=== PATIENT | male | born 1955 | race Caucasian/White ===

== ENCOUNTER 2017-01-05 06:09 | Day surgery (SDC) | payer OTHER ==
[~2017-01-05] VITALS: Ht 188 cm; Wt 103.4 kg
--- NOTE | ~2017-01-05 | EGD ---
EGD REPORT [facility] [address] [address] NAME: TURNER DEL ROSARIO : [birth year] STATUS : REG [facility]#: [id number] AGE: 61 ADM/REG DATE : 01/05/17 MR#: [id number] REPORT SERV DATE: 01/05/17 DICTATED BY: ANA LOCKWOOD DATE: 01/05/17 REPORT STATUS : Draft [facility]ANS[facility]IB[facility]: [facility] DATE: 01/05/17 Endoscopy Center Patient Name: Turner Del Rosario Date of : 1955 Attending MD: ANA LOCKWOOD MD Procedure Date No Time: 01/05/2017 Procedure: Upper GI endoscopy Indications: Heartburn; Pantoprazole 40mg daily. Patient Profile: Informed consent was obtained from the patient by me prior to the procedure. Risks, benefits, and alternatives were reviewed including the risk of bleeding, perforation, infection, reaction to medicine, missed lesion, and cardiopulmonary complications. Referring MD: Mukund RUIZ Medicines: Monitored Anesthesia Care Complications: No immediate complications. Procedure: After obtaining informed consent, the endoscope was passed under direct vision. Throughout the procedure, the patient's blood pressure, pulse, and oxygen saturations were monitored continuously. The GIF [id number] was introduced through the mouth, and advanced to the second part of duodenum. The endoscope was withdrawn with careful examination all mucosal surfaces including retroflexion stomach. The upper GI endoscopy was accomplished without difficulty. The patient tolerated the procedure well. Findings: The first part of the duodenum and 2nd part of the duodenum were normal. Biopsies were taken with a cold forceps for histology. Two 3 mm sessile polyps with were found in the duodenal bulb. The polyps were removed with a cold biopsy forceps. Resection and retrieval were complete. Patchy mildly erythematous mucosa was found in the gastric body and in the gastric antrum. Biopsies were taken with a cold forceps for histology. The cardia and gastric fundus (on retroflexion) were normal. The Z-line was irregular, one tongue 0.5cm, no esophagitis or nodules. Biopsies were taken with a cold forceps for histology. The examined esophagus was normal. Biopsies were taken with a cold forceps for histology from mid and upper. Impression: - Normal first part of the duodenum and 2nd part of the duodenum. Biopsied. - Two duodenal polyps. Resected and retrieved. EGD REPORT [address] [address] NAME: TURNER DEL ROSARIO : [birth year] STATUS : REG [facility]#: [id number] AGE: 61 ADM/REG DATE : 01/05/17 MR#: [id number] REPORT SERV DATE: 01/05/17 DICTATED BY: ANA LOCKWOOD DATE: 01/05/17 REPORT STATUS : Draft TRANSCRIBED BY: [email or web address] DATE: 01/05/17 - Erythematous mucosa in the gastric body and antrum. Biopsied. - Normal cardia and gastric fundus. - Z-line irregular,. Biopsied. - Normal esophagus. Biopsied. Recommendation: - Patient has a contact number available for emergencies. The signs and symptoms of potential delayed complications were discussed with the patient. Return to normal activities tomorrow. Written discharge instructions were provided to the patient. - Regular diet. - Continue present medications. - Await pathology results. - Add Zantac 150mg qhs. - Schd office visit 2-3 months. Procedure Code(s): --- Professional --- 98900, Esophagogastroduodenoscopy, flexible, transoral; with biopsy, single or multiple Diagnosis Code(s): --- Professional --- K31.7, Polyp of stomach and duodenum K31.9, Disease of stomach and duodenum, unspecified K22.8, Other specified diseases of esophagus R12, Heartburn CPT copyright 2013 [employer]. All rights reserved. The codes documented in this report are preliminary and upon remote medical coder review may be revised to meet current compliance requirements. ANA LOCKWOOD MD 01/05/2017 7:53 AM This report has been signed electronically. Number of Addenda: 0 Note Initiated On: 01/05/2017 7:30 AM Scope Withdrawal Time 0 hours 0 minutes 0 seconds [address] [id number]
--- NOTE | ~2017-01-05 | EGD ---
EGD REPORT [facility] [address] [address] NAME: TURNER DEL ROSARIO : [birth year] [place]US : [place] [facility] [place]#: [id number] AGE: 61 ADM/REG DATE : 01/05/17 MR#: [id number] REPORT SERV DATE: 01/05/17 DICTATED BY: ANA LOCKWOOD DATE: 01/05/17 REPORT STATUS : Draft [facility]: [facility] DATE: 01/05/17 Endoscopy Center Patient Name: Turner Del Rosario Date of : 1955 Attending MD: ANA LOCKWOOD MD Procedure Date No Time: 01/05/2017 Procedure: Colonoscopy Indications: High risk colon cancer surveillance: Personal history of non-advanced adenoma; last exam 2013. Patient Profile: Informed consent was obtained from the patient by me prior to the procedure. Risks, benefits, and alternatives were reviewed including the risk of bleeding, perforation, infection, reaction to medicine, missed lesion, and cardiopulmonary complications. Referring MD: Mukund RUIZ Medicines: Monitored Anesthesia Care Complications: No immediate complications. Procedure: After I obtained informed consent, the scope was passed under direct vision. Throughout the procedure, the patient's blood pressure, pulse, and oxygen saturations were monitored continuously. The CF [id number] was introduced through the anus and advanced to the cecum, identified by appendiceal orifice and ileocecal valve. The colonoscope was slowly withdrawn with careful examination all mucosal surfaces including specific attention around flexures and tip deflection behind folds; retroflexion performed in rectum. The colonoscopy was performed without difficulty. The patient tolerated the procedure well. The quality of the bowel preparation was adequate. The ileocecal valve, appendiceal orifice and rectum were photographed. Findings: A sessile polyp was found in the descending colon. The polyp was 5 mm in size. The polyp was removed with a cold biopsy forceps. Resection and retrieval were complete. A few small-mouthed diverticula were found in the sigmoid colon. Impression: - One 5 mm polyp in the descending colon. Resected and retrieved. - Diverticulosis in the sigmoid colon. Recommendation: - Patient has a contact number available for emergencies. The signs and symptoms of potential delayed complications were discussed with the patient. Return to EGD REPORT [address] [address] NAME: TURNER DEL ROSARIO : [birth year] [place]US : [place] [facility] [place]#: [id number] AGE: 61 ADM/REG DATE : 01/05/17 MR#: [id number] REPORT SERV DATE: 01/05/17 DICTATED BY: ANA LOCKWOOD DATE: 01/05/17 REPORT STATUS : Draft TRANSCRIBED BY: [employer] DATE: 01/05/17 normal activities tomorrow. Written discharge instructions were provided to the patient. - Regular diet. - Continue present medications. - Await pathology results. - Repeat colonoscopy for surveillance based on pathology results. Procedure Code(s): --- Professional --- 28812, Colonoscopy, flexible, proximal to splenic flexure; with biopsy, single or multiple Diagnosis Code(s): --- Professional --- D12.4, Benign neoplasm of descending colon K57.30, Diverticulosis of large intestine without perforation or abscess without bleeding Z86.010, Personal history of colonic polyps CPT copyright 2013 [employer]. All rights reserved. The codes documented in this report are preliminary and upon chemical preparer review may be revised to meet current compliance requirements. ANA LOCKWOOD MD 01/05/2017 8:13 AM This report has been signed electronically. Number of Addenda: 0 Note Initiated On: 01/05/2017 7:29 AM Scope Withdrawal Time 0 hours 9 minutes 57 seconds [address] [place] [address]
[~2017-01-05 06:09] MED LIST: MOBIC15 MG PO; PERCOCET1 TA2 PO; PRIN10 PO; PROTONIX20 MG PO; SUCR; ZOCOR20 PO
== END 2017-01-05 23:59 | disposition home or self-care (01) ==
LOC: DMU 06:09
PROVIDERS: Internal Medicine Gastroenterology
PROC: 0DB18ZX Excision of Upper Esophagus, Via Natural or Artificial Opening Endoscopic, Diagnostic (ICD-10-PCS; 2017-01-05)
PROC: 0DB28ZX Excision of Middle Esophagus, Via Natural or Artificial Opening Endoscopic, Diagnostic (ICD-10-PCS; 2017-01-05)
PROC: 0DB68ZX Excision of Stomach, Via Natural or Artificial Opening Endoscopic, Diagnostic (ICD-10-PCS; 2017-01-05)
PROC: 0DBM8ZZ Excision of Descending Colon, Via Natural or Artificial Opening Endoscopic (ICD-10-PCS; principal; 2017-01-05 07:30)
PROC: 0DB98ZX Excision of Duodenum, Via Natural or Artificial Opening Endoscopic, Diagnostic (ICD-10-PCS; 2017-01-05 07:30)
DX: D12.4 Benign neoplasm of descending colon (principal); Q40.2 Other specified congenital malformations of stomach; K20.9 Esophagitis, unspecified; H26.9 Unspecified cataract; K57.30 Diverticulosis of large intestine without perforation or abscess without bleeding; K21.9 Gastro-esophageal reflux disease without esophagitis; I10 Essential (primary) hypertension; Z86.010 Personal history of colon polyps; Z85.528 Personal history of other malignant neoplasm of kidney; Z90.5 Acquired absence of kidney; Z79.899 Other long term (current) drug therapy
CPT/HCPCS: 88305